=== PATIENT | female | born 1945 | race Caucasian/White ===

== ENCOUNTER 2020-01-28 09:09 | Inpatient (IN) | payer MEDICARE, MEDICAID ==
[~2020-01-28] VITALS: Ht 152.4 cm; Wt 72.6 kg
[2020-01-28] MEDS ORDERED: SODIUM CHLORIDE FLUSH 10ML SYR IVF ONE (09:30)
--- NOTE | 2020-01-28 09:30 | NUR ---
TANGELA. REPORT RECEIVED FROM EMS. PER HOME CARE STAFF, PT IS HOT TO TOUCH/CHILLS/COUGH STARTED TODAY and N/V/D X 2 DAYS. PT IS DIMENTIA AND AOX1 IS HER BASELINE. PT STATES"PAIN WITH PEE" RESPS EVEN AND UNLABORED. ALL MONITORS IN PLACE. CALL LIGHT WITHIN REACH. EDMD AT BEDSIDE TO EVALUATE AT THIS TIME.
--- NOTE | 2020-01-28 09:36 | NUR ---
ISO CART PLACED D/T D PER [facility] CARE STAFF.
[2020-01-28] MEDS ORDERED: ONDANSETRON 2MG/ML, 2ML ONE (09:49)
[2020-01-28 09:55] LABS: BASOPHILS # (AUTO) 0.04 x10^3/uL (0-0.1); BASOPHILS % (AUTO) 1 % (0-1); EOSINOPHILS # (AUTO) 0.06 x10^3/uL (0-0.4); EOSINOPHILS % (AUTO) 1 % (1-7); LYMPHOCYTES # (AUTO) 1.19 x10^3/uL (1-3.4); LYMPHOCYTES % (AUTO) 13 % (22-44); MD NO; MEAN CORPUSCULAR HEMOGLOBIN 32.8 pg (27.0-34.8); MEAN CORPUSCULAR HGB CONC 33.5 g/dL (32.4-35.8); MEAN CORPUSCULAR VOLUME 97.7 fL (80-100); MEAN PLATELET VOLUME 7.5 fL (7.4-10.4); MONOCYTES # (AUTO) 0.29 x10^3/uL (0.2-0.8); MONOCYTES % (AUTO) 3 % (2-9); NEUTROPHILS # (AUTO) 7.45 x10^3/uL (1.8-6.8); NEUTROPHILS % (AUTO) 83 % (42-75); PLATELET COUNT 452 x10^3/uL (130-400); RED BLOOD COUNT 3.86 x10^6/uL (3.82-5.3); RED CELL DISTRIBUTION WIDTH 14.4 % (9.6-15.2)
[2020-01-28] MEDS ORDERED: SODIUM CHLORIDE 0.9% 1,000 ML IV ONE ×2 (10:00→11:31)
[2020-01-28] MEDS ORDERED: ONDANSETRON 2MG/ML, 2ML IVPush ONE (10:00)
[2020-01-28 10:02] LABS: RAPID INFLUENZA A Negative (Negative); RAPID INFLUENZA B Negative (Negative)
--- NOTE | 2020-01-28 10:07 | NUR ---
PT NOT READY FOR CT AT THIS TIME
[2020-01-28 10:09] LABS: ALANINE AMINOTRANSFERASE 17 U/L (12-78); ALBUMIN 3.7 g/dL (3.4-5.0); ANION GAP 6 mmol/L (5-15); CALCIUM 9.2 mg/dL (8.5-10.1); CHLORIDE 105 mmol/L (98-107); CREATININE 0.82 mg/dL (0.55-1.02)
[2020-01-28 10:11] LABS: ALKALINE PHOSPHATASE 106 U/L (45-117); BILIRUBIN,TOTAL 0.4 mg/dL (0.2-1.0); TOTAL PROTEIN 7.6 g/dL (6.4-8.2)
--- NOTE | 2020-01-28 10:19 | NUR ---
PT MEDICATED PER EMAR. PT TOLERATED WELL. NS INFUSING AT THIS TIME.
--- NOTE | 2020-01-28 10:21 | NUR ---
EKG DONE AT BEDSIDE BY EMT.
--- NOTE | 2020-01-28 10:33 | NUR ---
CT PAGED D/T FLU NEGATIVE.
--- NOTE | 2020-01-28 10:33 | NUR ---
PT'S STRAIGHT CATH'D USING STERILE TECHNIQUE. PT TOLERATED WELL. THIS RN WALKED TO LAB FOR UA.
[2020-01-28 10:49] LABS: CULTURE INDICATED? YES; MICROSCOPIC INDICATED
--- NOTE | 2020-01-28 11:26 | NUR ---
pt to room 39 at this time.
[2020-01-28] MEDS ORDERED: CEFTRIAXONE PMX 1GM/50ML 50 ML ONE (11:32)
--- NOTE | 2020-01-28 11:40 | NUR ---
ABX INFUSING AT THIS TIME, PT TOLERATED WELL.
--- NOTE | 2020-01-28 11:42 | NUR ---
HOSPITALIST AT BEDSIDE.
[2020-01-28] MEDS ORDERED: [UNRECOGNIZED DRUG - MIXTURE] (11:46)
[2020-01-28] MEDS ORDERED: FAMO20TA7 PO (11:47)
[2020-01-28] MEDS ORDERED: LORA-445 PO (11:47)
[2020-01-28] MEDS ORDERED: QUET25TA7 PO (11:48)
[2020-01-28] MEDS ORDERED: TRAZ-175 PO (11:49)
[2020-01-28] MEDS ORDERED: SODI1TAB PO (11:49)
[2020-01-28] MEDS ORDERED: LABETALOL 5MG/ML, 20ML IVPush PRN (12:00)
[2020-01-28] MEDS ORDERED: ONDANSETRON ODT 4 MG PO PRN (12:00)
[2020-01-28] MEDS ORDERED: hydrALAzine 20 MG/ML, 1ML IVPush PRN (12:00)
[2020-01-28] MEDS ORDERED: GUAIFENESIN/DM 200-20MG, 10ML UDC PO PRN (12:00)
[2020-01-28] MEDS ORDERED: POLYETHYLENE GLYCOL 17 GM PACKET PO PRN (12:00)
[2020-01-28] MEDS ORDERED: LACTATED RINGERS 1,000 ML IV ONE (12:00)
[2020-01-28] MEDS ORDERED: ACETAMINOPHEN 325 MG TABLET PO PRN (12:00)
[2020-01-28] MEDS ORDERED: ONDANSETRON 2MG/ML, 2ML IVPush PRN (12:00)
[2020-01-28] MEDS ORDERED: CEFTRIAXONE PMX 1GM/50ML 50 ML IVPB ONE (12:00)
--- NOTE | 2020-01-28 12:27 | NUR ---
TASK RN, COVERING MEAL BREAK. PT RESTING QUIETLY, NAD. SITTER IN ROOM.
--- NOTE | 2020-01-28 12:44 | NUR ---
PT PULLED OUT PIV. EMT ATTEMPTING TO START NEW PIV AT THIS TIME.
--- NOTE | 2020-01-28 12:56 | NUR ---
REPORT GIVEN TO LINDA TAVARES. ALL QUESTIONS ANSWERED.
[2020-01-28] MEDS ORDERED: SODIUM CHLORIDE FLUSH 10ML SYR IVF PRN (13:00)
[2020-01-28] MEDS ORDERED: LOPERAMIDE 2 MG CAPSULE PO PRN (13:30)
[2020-01-28 14:56] VITALS: BP 137/74
[2020-01-28] MEDS: ENOXAPARIN 40 MG/0.4 ML SQ SCH (21:00)
[2020-01-28] MEDS: CEFTRIAXONE PMX 1GM/50ML 50 ML IV SCH (22:10)
[2020-01-28] MEDS: LORazepam 0.5MG TABLET PO SCH (22:10)
[2020-01-28] MEDS: FAMOTIDINE 20 MG TABLET PO SCH (22:11)
[2020-01-28] MEDS: TRAZODONE 100MG TABLET PO SCH (22:11)
[2020-01-28] MEDS: QUETIAPINE 25MG TABLET PO SCH (22:11)
[2020-01-28] MEDS: SODIUM CHLORIDE 1 GM TABLET PO SCH (22:18)
[2020-01-29 00:37] VITALS: BP 135/78
[2020-01-29 07:58] VITALS: BP 110/70
[2020-01-29] MEDS: QUETIAPINE 25MG TABLET PO SCH ×2 (08:54→20:55)
[2020-01-29] MEDS: SODIUM CHLORIDE 1 GM TABLET PO SCH ×2 (08:54→20:55)
[2020-01-29] MEDS: LORazepam 0.5MG TABLET PO SCH ×2 (08:54→20:55)
[2020-01-29] MEDS: CEFTRIAXONE PMX 1GM/50ML 50 ML IV SCH ×2 (10:09→23:02)
[2020-01-29 13:00] VITALS: BP 97/62
[2020-01-29 19:18] VITALS: BP 126/79
[2020-01-29] MEDS: FAMOTIDINE 20 MG TABLET PO SCH (20:55)
[2020-01-29] MEDS: ENOXAPARIN 40 MG/0.4 ML SQ SCH (20:55)
[2020-01-29] MEDS: TRAZODONE 100MG TABLET PO SCH (20:55)
[2020-01-30 02:26] VITALS: BP 122/80
[2020-01-30 06:59] VITALS: BP 152/74
[2020-01-30] MEDS: SODIUM CHLORIDE 1 GM TABLET PO SCH (07:59)
[2020-01-30] MEDS: QUETIAPINE 25MG TABLET PO SCH (07:59)
[2020-01-30] MEDS: LORazepam 0.5MG TABLET PO SCH (08:00)
[2020-01-30] MEDS: CEFTRIAXONE PMX 1GM/50ML 50 ML IV SCH (09:58)
[2020-01-30] MEDS ORDERED: CEFD300C37 PO (11:32)
== END 2020-01-30 13:53 | disposition home or self-care (01) | DRG 690 ==
LOC: ED 11:43 → UNDOADMIN 11:49 → EDIP 11:49 → 3N 13:36
PROVIDERS: ADMIT Emergency Medicine; ATTEND Emergency Medicine
DX: N30.00 Acute cystitis without hematuria (principal); F02.81 Dementia in other diseases classified elsewhere, unspecified severity, with behavioral disturbance; G30.1 Alzheimer's disease with late onset; R19.7 Diarrhea, unspecified; Z78.1 Physical restraint status; Z79.899 Other long term (current) drug therapy; D47.3 Essential (hemorrhagic) thrombocythemia; B95.1 Streptococcus, group B, as the cause of diseases classified elsewhere
CPT/HCPCS: 36415; 70450; 71045; 80053; 81001; 83605; 85025; 87040; 87086; 87147; 87400; 93005; 96374; 96375; 99285; G0378; J0696; J2405; J7030; J7120

== ENCOUNTER 2020-02-28 22:18 | Emergency (ER) | payer MEDICARE, MEDICAID ==
[~2020-02-28] VITALS: Ht 162.6 cm; Wt 58.3 kg
[~2020-02-28 22:18] MED LIST: CEFD300C37 PO; FAMO20TA7 PO; LORA-445 PO; QUET25TA7 PO; SODI1TAB PO; TRAZ-175 PO; [UNRECOGNIZED DRUG - MIXTURE]
[2020-02-28 22:30] VITALS: BP 152/67
--- NOTE | 2020-02-28 22:37 | NUR ---
PT BIB [facility].PT SLIPPED ON WOOD FLOOR AND HIT HEAD AND IS COMPLAINING OF A HEAD ACHE. PT DENIES LOC. VSS. PT ASSISTED ON TO BED ZAVALA. PT SIS NOT URINATE AND BRIEF PLACED BACK ON HER. PT TO CT.
[2020-02-28] MEDS ORDERED: QUET25TA7 PO (22:46)
[2020-02-28] MEDS ORDERED: BUTA1CAP30 PO (22:46)
--- NOTE | 2020-02-28 23:37 | NUR ---
PT TO BE DISCHARGED TO [facility]. SPOKE WITH DAVE AT [facility] AND THEY WILL BE EXPECTING HER. TRANSPORT BEING SET UP WITH [facility]. VSS. CALL LIGHT IN REACH
--- NOTE | 2020-02-29 00:04 | NUR ---
REPORT TO [facility]. ACOSTA AT [facility] CALLED AND UPDATED
== END 2020-02-29 00:07 | disposition home or self-care (01) ==
LOC: ED 02-29 00:01
DX: S06.0X0A Concussion without loss of consciousness, initial encounter (principal); S09.8XXA Other specified injuries of head, initial encounter; G30.1 Alzheimer's disease with late onset; F02.80 Dementia in other diseases classified elsewhere, unspecified severity, without behavioral disturbance, psychotic disturbance, mood disturbance, and anxiety; M54.6 Pain in thoracic spine; W01.0XXA Fall on same level from slipping, tripping and stumbling without subsequent striking against object, initial encounter; Y93.89 Activity, other specified; Y92.009 Unspecified place in unspecified non-institutional (private) residence as the place of occurrence of the external cause; Y99.8 Other external cause status
CPT/HCPCS: 70450; 72125; 99285